=== PATIENT | female | born 1955 | race Caucasian/White ===

== ENCOUNTER → 2016-06-02 | Outpatient (CLI) | payer SELFPAY ==
--- NOTE | 2016-06-02 09:28 | CT ---
EXAM DESCRIPTION: CT abdomen and pelvis without and with contrast. CLINICAL HISTORY: MICROSCOPIC HEMATURIA COMPARISON: None. TECHNIQUE: Pre and post contrast spiral CT with coronal and sagittal reformatted images FINDINGS: No hydronephrosis, nephrolithiasis, ureterolithiasis or bladder calculus. There is a tiny low-density lesion, nonenhancing lateral aspect upper left kidney measuring about 8 mm consistent with renal cyst. Small parapelvic cysts bilaterally. No suspicion of solid renal mass. No ureteral or bladder mass identified Visualized lung bases are clear. Heart size is normal. No mass lesion in the liver, spleen, pancreas or adrenal glands. Normal gallbladder. No biliary or pancreatic duct dilation Stomach, small and large intestine show no evidence of mass lesion or acute inflammation. A few scattered descending and sigmoid diverticula without diverticulitis. No pelvic soft tissue mass lesion, adenopathy or free fluid Multilevel degenerative change in the spine with severe levoscoliosis IMPRESSION: Etiology of hematuria not clear from this examination. 8 mm left renal cyst. Small parapelvic cysts Mild diverticulosis without diverticulitis Electronically signed by: Darrick Keene MD 06/02/2016 09:26
== END ==
LOC: CT 08:10
PROVIDERS: ATTEND Urology
DX: R31.29 Other microscopic hematuria (principal); N28.1 Cyst of kidney, acquired; K57.90 Diverticulosis of intestine, part unspecified, without perforation or abscess without bleeding

== ENCOUNTER → 2017-02-27 | Outpatient (CLI) | payer OTHER ==
--- NOTE | 2017-02-28 13:32 | MAM ---
EXAM DESCRIPTION: 3D Screening BILATERAL CLINICAL HISTORY: 61 yearsFemaleSCREENING . No complaints. Remote family history of breast and ovarian cancer. Postmenopausal. No HRT. COMPARISON: 2-D digital screening bilateral examination 02/14/2016.. No prior reports available. Reports from prior examinations also reviewed. Report from prior examination also reviewed. TECHNIQUE: Bilateral CC and MLO projection full-field images, 3-D tomosynthesis digital mammographic technique. Also bilateral synthesized CC/ MLO full-field images. CAD not utilized. FINDINGS: The breast parenchymal density pattern is: Almost entirely fatty. No skin thickening or nipple retraction bilaterally. No focal, stellate mass or density, focal asymmetry , and no suspicious microcalcifications bilaterally. Stable mammograms compared to prior study, taking into account differences in mammographic technique IMPRESSION: BI-RADS CATEGORY: 1 - NEGATIVE FOLLOW UP: Routine digital bilateral screening, one year interval from February 2017. Written communication explaining the findings and follow-up, will be mailed to the patient and referring health care provider. According to the [employer], yearly mammograms are recommended starting at age 40 and continuing as long as a woman is in good health. Any breast change noted on a breast self-exam should be reported promptly to the patient's healthcare provider. Breast MRI is recommended for women with an approximately 20-25% or greater lifetime risk of breast cancer, including women with a strong family history of breast or ovarian cancer and women who have been treated for Hodgkin's disease. A negative mammographic report should not delay tissue diagnosis in patients with significant clinical history or physical findings. Extremely dense breast tissue limits the sensitivity of digital mammography. Electronically signed by: Robb Dillon MD 02/28/2017 1:30 PM CDT
== END | disposition home or self-care (01) ==
LOC: MAMMO 13:26
PROVIDERS: ATTEND Family Medicine
DX: Z12.31 Encounter for screening mammogram for malignant neoplasm of breast (principal)
CPT/HCPCS: 77063; G0202

== ENCOUNTER → 2017-10-12 | Outpatient (CLI) | payer BC | LOC: GMAL 12:03 | PROVIDERS: ATTEND Family Medicine | DX: R30.0 Dysuria (principal) ==

== ENCOUNTER → 2018-06-27 | Outpatient (CLI) | payer BC ==
--- NOTE | 2018-06-27 18:12 | MRI ---
EXAM DESCRIPTION: Lumbar Spine w/o Contrast CLINICAL HISTORY: Radiculopathy, lumbar region COMPARISON: X-ray lumbar spine December 11, 2007 TECHNIQUE: MRI of the lumbar spine is performed according to our usual protocol with axial and sagittal multi sequence imaging. FINDINGS: Sagittal T2 images reveal decreased signal intensity consistent with desiccation of the intervertebral discs at all lumbar levels. Posterior annular bulges are most prominent at L2-3 through L4-5. L5-S1 appears partially fused. Leftward curvature of the upper L-spine with rightward curvature of the mid and lower L-spine. No prevertebral mass or aneurysm. Lower cord and conus appear normal. Tip of the conus is behind lower T12. Sagittal T1 images reveal benign marrow signal characteristics. Signal loss is prominent around degenerative L2-3 disc Normal T1 signal intensity and appearance of the lower cord and conus. Sagittal STIR images reveal increased signal intensity of reactive edema around the degenerated L1-2 disc. No paraspinous fluid collection or cystic lesion. Axial T1 and T2-weighted images were obtained to evaluate the disc levels. L1-L2: Mild posterior annular bulge without focal herniation. No spinal stenosis or left neural foraminal narrowing. Moderate narrowing of the right neural foramen related to facet spurring. Anatomy is distorted by scoliosis. Prominent anterior facet spurring on the right partially effaces the thecal sac. Normal appearance of the lower cord and conus. L2-3: Moderate diffuse posterior annular bulge without spinal stenosis. Moderate bilateral neural foraminal narrowing. Marked facet hypertrophic changes with severe bilateral subarticular recess narrowing crowding the descending L3 nerve roots. Spinal canal is narrowed medial laterally by ligamentum flavum thickening and facet spurring to 8 mm. The AP dimension is not significantly narrowed. L3-4: Mild diffuse posterior annular bulge without spinal stenosis or neural foraminal narrowing. Marked facet degenerative spurring is seen bilaterally with severe narrowing of the left subarticular recess impinging upon the descending left L4 nerve root. L4-5: Asymmetric posterior annular bulge is seen with marked left lateral and far left lateral accentuation severely narrowing the left subarticular recess and left neural foramen affecting the exiting left L4 nerve root and descending left L5 nerve root. There is moderate narrowing of the right subarticular recess. Marked facet hypertrophic spurring with marked ligamentum flavum thickening. L5-S1: Mild posterior disc/osteophyte complex without spinal stenosis. Mild facet hypertrophic spurring with moderate left and mild right subarticular recess narrowing contacting the descending left S1 nerve root. Mild to moderate left neural foraminal narrowing. Right neural foramen is widely patent. Sacrum appears intact. No retroperitoneal mass or aneurysm. Parapelvic right renal cysts are present. IMPRESSION: Scoliosis with multilevel disc degeneration and facet spurring causing subarticular recess and neural foraminal narrowing at levels described above. No acute appearing focal disc herniation or high-grade spinal stenosis. Electronically signed by: Efra Gaytan MD 06/27/2018 6:10 PM [facility]
== END ==
LOC: MRI 13:46
PROVIDERS: ATTEND Family Medicine
DX: M51.16 Intervertebral disc disorders with radiculopathy, lumbar region (principal); M41.9 Scoliosis, unspecified

== ENCOUNTER → 2018-08-07 | Outpatient (CLI) | payer MEDICARE | LOC: GMAL 10:38 | PROVIDERS: ATTEND Family Medicine | DX: D51.3 Other dietary vitamin B12 deficiency anemia (principal); E55.9 Vitamin D deficiency, unspecified ==

== ENCOUNTER → 2018-09-09 | Outpatient (CLI) | payer MEDICARE | LOC: LAB.O 14:21 | PROVIDERS: ATTEND Family Medicine | DX: M25.50 Pain in unspecified joint (principal) ==

== ENCOUNTER → 2018-11-04 | Outpatient (CLI) | payer MEDICARE | LOC: GMAL 11:07 | PROVIDERS: ATTEND Family Medicine | DX: D51.3 Other dietary vitamin B12 deficiency anemia (principal); E55.9 Vitamin D deficiency, unspecified ==

== ENCOUNTER → 2019-09-12 | Outpatient (CLI) | payer MEDICARE | LOC: GMAL 11:40 | PROVIDERS: ATTEND Family Medicine | DX: D51.3 Other dietary vitamin B12 deficiency anemia (principal); E55.9 Vitamin D deficiency, unspecified; I10 Essential (primary) hypertension; Z79.891 Long term (current) use of opiate analgesic ==

== ENCOUNTER → 2020-02-16 | Outpatient (CLI) | payer MEDICARE, OTHER | LOC: GMAL 10:36 | PROVIDERS: ATTEND Family Medicine | DX: M10.9 Gout, unspecified (principal) ==

== ENCOUNTER → 2020-03-05 | Outpatient (CLI) | payer MEDICARE, OTHER ==
--- NOTE | 2020-03-06 14:45 | MRI ---
EXAM DESCRIPTION: MRI Ankle,Left CLINICAL HISTORY: PAIN IN LEFT ANKLE. M25.572 chronic pain and swelling of the left ankle. Prior fracture about 5 years ago according to the patient. COMPARISON: None Available. TECHNIQUE: MRI of the left ankle is performed according to our usual protocol with multiplanar multi sequence imaging. FINDINGS: Extensive fatty atrophy of the calf musculature just above the ankle also involving hindfoot and midfoot musculature. This is best described as diffuse grade 3 fatty atrophy with marked volume loss. Diffuse subcutaneous edema with thickening of the skin. No drainable fluid collection. No fracture or bone lesion. No tendinopathy. Advanced arthritic changes of the anterior subtalar joint with reactive marrow edema as well as joint space narrowing and subchondral eburnation. Lesser changes posterior subtalar joint. Mortise joint is unremarkable. Suspect remote prior tear anterior talofibular ligament. No intact fibers identified. Posterior talofibular ligament and anterior tibiofibular ligament intact. Medial deltoid ligament complex intact. IMPRESSION: 1. Severe diffuse muscular atrophy 2. Diffuse subcutaneous edema 3. Arthritic changes subtalar joints 4. Remote prior anterior talofibular ligament tear Electronically signed by: Fernando Wiley MD 03/06/2020 2:44 PM CDT
== END ==
LOC: MRI 09:00
PROVIDERS: ATTEND Family Medicine
DX: M19.072 Primary osteoarthritis, left ankle and foot (principal); S93.492A Sprain of other ligament of left ankle, initial encounter; M62.572 Muscle wasting and atrophy, not elsewhere classified, left ankle and foot; R60.0 Localized edema

== ENCOUNTER → 2020-04-01 | Outpatient (CLI) | payer MEDICARE, OTHER ==
--- NOTE | 2020-04-02 08:56 | RAD ---
EXAM DESCRIPTION: Ankle,Left 3 Views (accession [id number]), Foot,Left 3 Views (accession [id number]) CLINICAL HISTORY: 64 years, Female, ANKLE AND FOOT PAIN LEFT COMPARISON: None. TECHNIQUE: 1. AP/lateral/oblique of the left ankle 2. AP/lateral/oblique of the left foot FINDINGS: Images of the left foot and ankle demonstrate mild diffuse osteopenia. There is inferior tilt of the talus head (at the talonavicular joint) consistent with midfoot collapse/pes planus. There is linear lucency with suggestion of possible surrounding sclerotic changes at the cuboid which may represent a nondisplaced fracture. Mild to moderate tibiotalar joint osteoarthrosis with anterior tibial plafond osteophyte. There are small plantar calcaneal spur. Small ankle joint effusion is present. Soft tissue swelling surrounds ankle and lower calf. IMPRESSION: 1. Cuboid bone lucency and subtle sclerosis may represent nondisplaced fracture. Correlation with CT or MRI can be considered. 2. Appearance of partial midfoot collapse and pes planus configuration. 3. Osteoarthrosis. 4. Osteopenia. Electronically signed by: Vignesh Ewing DO 04/02/2020 8:55 AM [facility]
--- NOTE | 2020-04-02 08:56 | RAD ---
EXAM DESCRIPTION: Ankle,Left 3 Views (accession [id number]), Foot,Left 3 Views (accession [id number]) CLINICAL HISTORY: 64 years, Female, ANKLE AND FOOT PAIN LEFT COMPARISON: None. TECHNIQUE: 1. AP/lateral/oblique of the left ankle 2. AP/lateral/oblique of the left foot FINDINGS: Images of the left foot and ankle demonstrate mild diffuse osteopenia. There is inferior tilt of the talus head (at the talonavicular joint) consistent with midfoot collapse/pes planus. There is linear lucency with suggestion of possible surrounding sclerotic changes at the cuboid which may represent a nondisplaced fracture. Mild to moderate tibiotalar joint osteoarthrosis with anterior tibial plafond osteophyte. There are small plantar calcaneal spur. Small ankle joint effusion is present. Soft tissue swelling surrounds ankle and lower calf. IMPRESSION: 1. Cuboid bone lucency and subtle sclerosis may represent nondisplaced fracture. Correlation with CT or MRI can be considered. 2. Appearance of partial midfoot collapse and pes planus configuration. 3. Osteoarthrosis. 4. Osteopenia. Electronically signed by: Vignesh Ewing DO 04/02/2020 8:55 AM [employer]UCATION
== END ==
LOC: RAD 09:33
PROVIDERS: ATTEND Orthopaedic Surgery
DX: M89.9 Disorder of bone, unspecified (principal); M19.072 Primary osteoarthritis, left ankle and foot; M85.872 Other specified disorders of bone density and structure, left ankle and foot; M21.41 Flat foot [pes planus] (acquired), right foot

== ENCOUNTER → 2020-07-07 | Outpatient (CLI) | payer MEDICARE, OTHER ==
--- NOTE | 2020-07-07 13:53 | MRI ---
EXAM DESCRIPTION: MRI right shoulder CLINICAL HISTORY: Right shoulder pain COMPARISON: None. TECHNIQUE: Multiplanar, multisequence MR images of the right shoulder FINDINGS: Mild acromioclavicular osteoarthritis. Subacromial enthesophyte and contiguous inferior lateral acromial spur Complete supraspinatus tendon tear retracted to the medial joint level. Severe muscle volume loss and grade 3 fatty infiltration Near complete infraspinatus tendon tear sparing a few thin posterior fibers. Majority of the tendon retracted to the medial humeral level. Severe muscle volume loss and grade 4 fatty infiltration. Teres minor tendon and muscle are normal Low-grade partial articular and interstitial tear of the cranial subscapularis tendon. Muscle volume mildly decreased with grade 1 fatty infiltration Long head biceps tendon is torn and adherent in the bicipital groove, complete tear likely superimposed on attritional tendinopathy. Blunted labral anchor and superior labrum. No detachment of the remainder of the labrum. Minimal sublabral edema along the posterior glenoid rim apparently from an overlying chondral fissure. No other full-thickness chondrosis or subchondral marrow abnormality of the glenoid. Diffuse high-grade chondral thinning over the anterior medial humeral head. Small inferior medial humeral head osteophyte Joint effusion and synovitis with contiguous subacromial subdeltoid bursal fluid IMPRESSION: Chronic massive rotator cuff tear. Tears of both supraspinatus and infraspinatus tendon with significant muscle volume loss and fatty infiltration Complete tear long head biceps tendon adherent in the bicipital groove Glenohumeral chondrosis most significantly affecting the humeral head anterior and superior Electronically signed by: Darrick Keene MD 07/07/2020 1:51 PM [employer]
== END ==
LOC: MRI 06-28 09:00
PROVIDERS: ATTEND Family Medicine
DX: M75.121 Complete rotator cuff tear or rupture of right shoulder, not specified as traumatic (principal); S46.111A Strain of muscle, fascia and tendon of long head of biceps, right arm, initial encounter; M94.211 Chondromalacia, right shoulder